=== PATIENT | male | born 2000 | race Two or more races ===

== ENCOUNTER 2019-02-13 13:22 | Outpatient (CLI) | payer OTHER | END 2019-02-13 13:38 | disposition home or self-care (01) | LOC: SONOGRAMA 13:22 | DX: N50.89 Other specified disorders of the male genital organs (principal) ==

== ENCOUNTER 2022-02-15 10:32 | Outpatient (CLI) | payer OTHER | END 2022-02-15 10:41 | disposition home or self-care (01) | LOC: SONOGRAMA 10:32 | PROVIDERS: ATTEND General Practice | DX: L64.9 Androgenic alopecia, unspecified (principal); L67.9 Hair color and hair shaft abnormality, unspecified; Z71.9 Counseling, unspecified; Z13.89 Encounter for screening for other disorder; Z11.3 Encounter for screening for infections with a predominantly sexual mode of transmission; Z13.1 Encounter for screening for diabetes mellitus ==

== ENCOUNTER 2024-03-02 07:26 | Outpatient (CLI) | payer OTHER | END 2024-03-02 07:38 | disposition home or self-care (01) | LOC: SONOGRAMA 07:26 | PROVIDERS: ATTEND Specialist | DX: R06.00 Dyspnea, unspecified (principal); E66.9 Obesity, unspecified; E04.1 Nontoxic single thyroid nodule ==